=== PATIENT | female | born 1950 | race Hispanic/Latino ===

== ENCOUNTER 2018-10-19 08:00 | Observation (INO) | payer MEDICARE ==
--- NOTE | 2018-10-16 13:39 | Diagnostic Imaging Report ---
EXAM: CHEST 2 VIEWS, PA and lateral DATE: 10/16/2018Time stamp on exam: 1:00 PM INDICATION: Preoperative for neck surgery. COMPARISON: None FINDINGS: LINES/TUBES: None LUNGS: Left lower lobe airspace opacity likely secondary to pneumonia. PLEURA: No effusions or pneumothorax. HEART AND MEDIASTINUM: Normal size and contour. BONES AND SOFT TISSUES: No acute findings. Degenerative changes of the spine. IMPRESSION: Left lower lobe pneumonia. Signed by: Dr. Dong Canas DO on 10/16/2018 1:36 PM
[2018-10-16 15:04] LABS: BASOPHILS % 0.5 % (0.0-1.0); EOSINOPHILS # (AUTO) 0.1 (0.0-0.4); EOSINOPHILS % 3.2 % (0.0-6.0); HEMATOCRIT 31.5 % (34.2-44.1); HEMOGLOBIN 10.7 g/dL (12.0-16.0); LYMPHOCYTES # (AUTO) 1.1 (1.0-3.2); LYMPHOCYTES % 24.2 % (18.0-39.1); MEAN CORPUSCULAR HEMOGLOBIN 33.6 pg (28-32); MEAN CORPUSCULAR VOLUME 99.1 fL (81-99); MONOCYTES # (AUTO) 0.5 (0.2-0.8); MONOCYTES % 10.6 % (4.4-11.3); NEUTROPHILS # (AUTO) 2.7 (2.1-6.9); NEUTROPHILS % 61.3 % (38.7-80.0); PLATELET COUNT 129 x10e3/uL (140-360); RED BLOOD COUNT 3.18 x10e6/uL (3.6-5.1); RED CELL DISTRIBUTION WIDTH 12.6 % (11.7-14.4)
[2018-10-16 15:13] LABS: ANION GAP 12.1 mmol/L (8-16); BLOOD UREA NITROGEN 18 mg/dL (7-26); BUN/CREATININE RATIO 25 (6-25); CARBON DIOXIDE 25 mmol/L (22-29); CHLORIDE 101 mmol/L (98-107); CREATININE, SERUM 0.72 mg/dL (0.57-1.11); EST GLOMERULAR FILTRATION RATE > 60 ML/MIN (60-); GLUCOSE 132 mg/dL (74-118); POTASSIUM 4.1 mmol/L (3.5-5.1); SODIUM 134 mmol/L (136-145)
[~2018-10-19] VITALS: Ht 160 cm; Wt 86.2 kg
[2018-10-19] VITALS (7 sets, daily range): BP systolic 100–131; BP diastolic 51–61
[~2018-10-19 08:00] MED LIST: BACITRACIN 50,000 UNIT VIAL ONE; GABAPENTIN300 MG PO; LISINOPRIL10 MG PO; LOPERAMIDE2 MG PO; METFORMIN HCL500 M1 PO; OMEPRAZOLE40 MG PO; OXYBUTYNIN CHLOR5 M1 PO; ROPINIROLE HCL1 MG PO; ROPIVACAINE 246.25 MG, EPINEPHRINE HCL 1:1000 1ML 0.5 MG, CLONIDINE HCL 0.08 MG, KETORO... INJ ONE; SIMVASTATIN40 MG PO; SODIUM CHLORIDE 0.9% 500ML 0 ML ONE; TRANEXAMIC ACID 1,000 MG/10 ML ML ONE; VANCOMYCIN HCL 0 MG ONE
--- OUTSIDE RECORDS SUMMARY | 2018-10-19 08:09 | XMS REPORT ---
Author Author [facility] Address Unknown Phone Unavailable Care Team Providers Care Drafter Electronic Name Role Phone AKIKO CALERO Unavailable Unavailable Payers Payer Name Policy Type Policy Number Effective Date Expiration Date Problems This patient has no known problems. Allergies, Adverse Reactions, Alerts Allergy Name Allergy Type Status Severity Reaction(s) Onset Date Inactive Date Treating Clinician Comments No Known Allergies DA Active U 2016-09-03 00:00:00 Medications This patient has no known medications. Results Test Description Test Time Test Comments Text Results Atomic Results Result Comments CHEST 2 VIEWS 2018-10-16 13:34:00 [place] [address] Patient Name: SHANNON OLSON MR #: [id number] : 1950 Age/Sex: 68/F Req #: [id number] Adm Physician: Ordered by: AKIKO CALERO MD Report #: [id number] Location: OR Room/Bed: Procedure: [id number] DX/CHEST 2 VIEWS Exam Date: Exam Time: REPORT STATUS: Signed EXAM: CHEST 2 VIEWS, PA and lateral DATE: 10/16/2018Time stamp on exam: 1:00 PM INDICATION: Preoperative for neck surgery. COMPARISON: None FINDINGS: LINES/TUBES: None LUNGS: Left lower lobe airspace opacity likely secondary to pneumonia. PLEURA: No effusions or pneumothorax. HEART AND MEDIASTINUM: Normal size and contour. BONES AND SOFT TISSUES: No acute findings. Degenerative changes of the spine. IMPRESSION: Left lower lobe pneumonia. Signed by: Dr. Erick Hoffman DO on 10/16/2018 1:36 PM Dictated By: ERICK HOFFMAN DO [id number] Transcribed By: SHANA on 10/16/18 [id number] COPY TO: AKIKO CALERO MD
[2018-10-19] MEDS ORDERED: CELECOXIB 200 MG CAP ONE (08:28)
[2018-10-19] MEDS ORDERED: CEFAZOLIN SOD 1 GM/NS 50ML 100 ML IV ONE (08:29)
[2018-10-19] MEDS ORDERED: DEXAMETHASONE SOD PHOS 10 MG/1 ML VIAL ONE (08:29)
[2018-10-19] MEDS ORDERED: GABAPENTIN 300 MG CAP ONE (08:29)
[2018-10-19] MEDS ORDERED: BACITRACIN 50,000 UNIT VIAL ONE (08:58)
[2018-10-19] MEDS ORDERED: VANCOMYCIN HCL 1,000 MG ONE (08:58)
[2018-10-19] MEDS ORDERED: SODIUM CHLORIDE 0.9% 500ML 500 ML ONE (08:58)
[2018-10-19] MEDS ORDERED: TRANEXAMIC ACID 1,000 MG/10 ML ML ONE (08:58)
[2018-10-19] MEDS ORDERED: ONDANSETRON HCL INJ 2MG/ML 2ML 2 MG/ML VIAL IV PRN (10:30)
[2018-10-19] MEDS ORDERED: KETOROLAC TROMETHAMINE 30 MG/ML VIAL IV PRN ×2 (10:30→11:30)
[2018-10-19] MEDS ORDERED: HYDROCODONE/APAP 5MG-325MG TAB PO PRN (10:30)
[2018-10-19] MEDS ORDERED: ACETAMINOPHEN 650 MG SUPP PR PRN (10:30)
[2018-10-19] MEDS ORDERED: ZOLPIDEM TARTRATE 5 MG TAB PO PRN (10:30)
[2018-10-19] MEDS ORDERED: DIPHENHYDRAMINE HCL INJ 50 MG/ML VIAL IM/IV PRN (10:30)
[2018-10-19] MEDS ORDERED: PROMETHAZINE HCL (IM) 25 MG/ML VIAL INJ PRN (10:30)
[2018-10-19] MEDS ORDERED: DOCUSATE SODIUM 100 MG CAP PO PRN (10:30)
--- NOTE | 2018-10-19 11:08 | Diagnostic Imaging Report ---
Exam: Left knee 2 views History: Postop Comparison: None. Findings: See impression Impression: Post surgical changes of total left knee arthroplasty with intact surgical hardware and expected subcutaneous gas and skin charlie. Signed by: Dr. Carlin Faye M.D. on 10/19/2018 11:04 AM
[2018-10-19] MEDS ORDERED: FENTANYL CITRATE/PF 100MCG/2 ML INJ ONE ×2 (11:27→18:42)
[2018-10-19] MEDS: ACETAMINOPHEN 1000 MG/100 ML IV SCH ×2 (12:10→17:42)
[2018-10-19] MEDS: SODIUM CHLORIDE 0.9% 1000ML 1,000 ML IV SCH ×2 (12:10→20:19)
[2018-10-19] MEDS: HYDROCODONE/APAP 7.5MG-325MG 1 EA TAB PO PRN (13:56)
[2018-10-19] MEDS: CEFAZOLIN SOD 1 GM/NS 50ML 50 ML IV SCH ×2 (13:56→21:03)
--- NOTE | 2018-10-19 16:57 | Operative Report ---
DATE OF PROCEDURE: 10/19/2018 SURGEON: Carlin Oconnor MD ROTARY DRIER: Patrick Cline PA-C PREOPERATIVE DIAGNOSIS: Osteoarthritis, left knee. POSTOPERATIVE DIAGNOSIS: Osteoarthritis, left knee. PROCEDURE: Left total knee arthroplasty. INDICATIONS: The patient is a 68-year-old lady, who has advanced osteoarthritis of her left knee. She has failed conservative management and would now like to proceed with a left total knee replacement. She had a right knee replacement many years ago by another surgeon. I have reviewed the changes in knee replacement surgery since she had her right side done. The risks and benefits have been discussed. The slight differences in my procedure versus the previous surgeon's were explained. She states she understands and wishes to proceed. PROCEDURE IN DETAIL: The patient was brought to the operating room and placed under general anesthetic. She received a regional block, prophylactic antibiotics, and tranexamic acid in the holding area. Her left lower extremity was prepped and draped in a sterile manner. A preoperative time-out was performed. The extremity was exsanguinated and the proximal tourniquet was inflated to 300 mmHg. An anterior incision with a medial parapatellar arthrotomy was performed. Clear synovial fluid was removed from the joint. Soft tissue releases were performed to bring the knee up into flexion with the patella everted. Limited medial dissection was performed due to the valgus deformity. Meniscal remnants, marginal osteophytes and the anterior cruciate ligament were excised. A Autopilot and NephElectrochaea system was used. An extramedullary cutting guide was used to resect the proximal tibia. The cut was referenced off the least affected medial compartment. The tibial baseplate was a size #4. The central fin punch was impacted and attention was directed towards the distal femur. An intramedullary cutting guide was used to resect the distal femur in 5 degrees of valgus and rotation referencing off a combination of landmarks including Whitesides line, the epicondylar axis, and the posterior condyles. The femoral component was a size #5. The anterior and posterior cuts were made. A trial reduction was performed. A 9 mm ultracongruent tibial insert provided appropriate soft tissue balancing in full extension and 90 degrees of flexion. The patella was resurfaced with a 32 mm x 7.5 mm patellar button. The thickness was checked before and after and was right around 23 mm. Patellar tracking was noted to be concentric. The trial implants were removed. The knee was thoroughly irrigated with a shower tip pulsatile lavage. A 100 mL premixed pericapsular CONNIE injection was placed into the surrounding soft tissue. A single mix of Palacos cement preloaded with antibiotics was used to cement the components into place. Care was taken to remove extravasated cement. The wound was further irrigated while the cement cured. 500 mg of vancomycin powder were then sprinkled into the joint. The arthrotomy was closed with interrupted #1 Ethibond in an interrupted fashion. The knee was put through flexion and extension to ensure a secure closure. The skin was closed with subcuticular Vicryl and charlie. A sterile Aquacel bandage was applied. The patient was extubated and transported to the recovery room in stable condition. Blood loss was minimal. All needle and sponge counts were correct. Carlin Oconnor MD DR/ANKIT /[id number]
[2018-10-19] MEDS ORDERED: PROPOFOL IV EMULSION 10 MG/ML 20 ML VIAL ONE (17:27)
[2018-10-19] MEDS ORDERED: LIDOCAINE HCL 2% LOCAL INJ 5 ML SDV VIAL INJ ONE (17:27)
[2018-10-19] MEDS ORDERED: KETOROLAC TROMETHAMINE 30 MG/ML VIAL ONE (17:27)
[2018-10-19] MEDS ORDERED: SEVOFLURANE INHAL SOLN 250 ML PEN BTL ONE (17:27)
[2018-10-19] MEDS ORDERED: ONDANSETRON HCL INJ 2MG/ML 2ML 2 MG/ML VIAL ONE (17:27)
[2018-10-19] MEDS: CELECOXIB 100 MG CAP PO SCH (17:41)
[2018-10-19] MEDS: ASPIRIN 325 MG TAB PO SCH (17:41)
[2018-10-19] MEDS ORDERED: LIDOCAINE 2%/ EPINEPHRINE 20ML MDV ONE (18:09)
[2018-10-19] MEDS ORDERED: ROPIVACAINE 0.5% 5 MG/ML 30 ML SDV ONE (18:09)
[2018-10-19] MEDS ORDERED: MIDAZOLAM HCL 2 MG/2 ML VIAL ONE (18:42)
[2018-10-20] MEDS: ACETAMINOPHEN 1000 MG/100 ML IV SCH ×2 (00:01→05:18)
[2018-10-20] MEDS: HYDROCODONE/APAP 7.5MG-325MG 1 EA TAB PO PRN ×3 (02:30→12:44)
[2018-10-20 03:56] VITALS: BP 154/66
[2018-10-20] MEDS: SODIUM CHLORIDE 0.9% 1000ML 1,000 ML IV SCH (05:18)
[2018-10-20 05:56] LABS: HEMATOCRIT 27.3 % (34.2-44.1); HEMOGLOBIN 9.2 g/dL (12.0-16.0)
--- NOTE | 2018-10-20 06:19 | NUR ---
DRESSING REMOVED. AQUACEL DRESSING INTACT WITH MINIMAL AMT OF DRAINAGE NOTED. PORTER ACOSTA APPLIED AND REAPPLIED SCD'S.
[2018-10-20] MEDS: CEFAZOLIN SOD 1 GM/NS 50ML 50 ML IV SCH (07:12)
--- NOTE | 2018-10-20 07:25 | NUR ---
pt lying in bed resp even and unlabored at this time no distress noted pt has no pain when asked and able to make needs known, pt call light in reach, family member at bedside.
[2018-10-20] MEDS: CELECOXIB 100 MG CAP PO SCH (08:28)
[2018-10-20] MEDS: ASPIRIN 325 MG TAB PO SCH (08:28)
[2018-10-20 08:45] VITALS: BP 132/61
--- NOTE | 2018-10-20 09:45 | NUR ---
pt up walking with PT tolerated well.
[2018-10-20] MEDS ORDERED: ACETAMINOPHEN 1000 MG/100 ML IV PRN (10:30)
[2018-10-20] MEDS ORDERED: ONDANSETRON HCL 4 MG ORAL DISINTEGRATING TAB PO PRN ×2 (10:30)
--- NOTE | 2018-10-20 10:40 | NUR ---
Visit made by the Spiritual Care Department Pastoral Visitor, Joseline Baig. PV provided pastoral presence, prayer, hospitality, and supportive listening. Pastoral Visitor informed pt/family of the scope of [employer] and availability. ABRAM MCMILLAN Chief Of Service Spiritual Care Department O: [phone] Pager: [phone] ([phone] number calling from)
[2018-10-20 11:54] VITALS: BP 123/58
--- NOTE | 2018-10-20 12:00 | NUR ---
pt ambulating in [place] with PT
[2018-10-20] MEDS ORDERED: ASPIRIN325 MG PO (12:06)
--- NOTE | 2018-10-20 13:28 | NUR ---
pt discharge home with instructions on her dressing to knee, pt iv site removed no swelling no redness to site. cath tip intact. pt in formed on his follow up visits. Dr. Oconnor here to see pt about her medications.
[2018-10-20] MEDS ORDERED: CELECOXIB 200 MG CAP PO SCH (17:00)
== END 2018-10-20 13:15 | disposition home health service (06) ==
LOC: OR 08:00 → PACU V 10:26 → MED/SURG 11:16
PROVIDERS: ADMIT Specialist; ATTEND Specialist
DX: M17.0 Bilateral primary osteoarthritis of knee (principal); I10 Essential (primary) hypertension; Z96.651 Presence of right artificial knee joint; E11.9 Type 2 diabetes mellitus without complications; K29.70 Gastritis, unspecified, without bleeding
CPT/HCPCS: 27447; 36415 ×3; 71046; 73560; 80048; 82948 ×2; 85014; 85018; 85025; 86850; 86900; 86920; 93005; 97116 ×2; 97161; 97530; C1713 ×2; G0378 ×2; J0131 ×2; J0171; J0690 ×2; J1100; J1885 ×2; J2001 ×2; J2250; J2405; J2704; J2795; J3370; J7030; J7040; J3010